=== PATIENT | male | born 1960 | race Caucasian/White ===

== ENCOUNTER 2018-09-14 06:34 | Inpatient (IN) | payer MEDICARE, MEDICAID ==
[~2018-09-14] VITALS: Ht 177.8 cm; Wt 90.7 kg
[~2018-09-14 06:34] MED LIST: FLUO40CA8 PO; IBUP-2030 PO; LAM2 PO; MULT-1146 PO
[2018-09-14] MEDS ORDERED: CEFOXITIN SODIUM 2 G in DEXT 5% WATER 100 ML IV STA (06:56)
[2018-09-14] MEDS ORDERED: NORMAL SALINE 0.9% 10 ML SYR ONE (08:01)
[2018-09-14] MEDS ORDERED: BUPIVACAINE HCL/PF 0.5% (5MG/ML) 10ML ONE (08:01)
[2018-09-14] MEDS ORDERED: LIDOCAINE HCL 1% 20ML VIAL (Pyxis) INJ ONE ×2 (08:01→09:32)
[2018-09-14] MEDS ORDERED: BACITRACIN 50,000 UNITS/VIAL ONE (08:02)
[2018-09-14] MEDS: LACTATED RINGERS 1,000 ML IV SCH ×2 (09:30→14:19)
[2018-09-14] MEDS ORDERED: ROCURONIUM BROMIDE 10MG/ML VIAL 5ML IV ONE ×2 (09:32→10:11)
[2018-09-14] MEDS ORDERED: FENTANYL CITRATE/PF 50MCG/ML 2ML VIAL ONE ×2 (09:32→10:41)
[2018-09-14] MEDS ORDERED: PROPOFOL 200MG/20ML VIAL IV ONE (09:32)
[2018-09-14] MEDS ORDERED: MIDAZOLAM HCL 2 MG/2 ML VIAL ONE (09:32)
[2018-09-14] MEDS ORDERED: SKIN ADHESIVE 0.7 GM EA TOP ONE (10:53)
[2018-09-14] MEDS ORDERED: ONDANSETRON HCL 4MG/2ML INJ IV PRN ×2 (11:30→12:00)
[2018-09-14] MEDS ORDERED: FENTANYL CITRATE/PF 50MCG/ML 2ML VIAL IV PRN (11:30)
[2018-09-14] MEDS: HYDROMORPHONE HCL/PF 2MG/ML CPJ IV PRN ×2 (11:44→14:17)
[2018-09-14] MEDS ORDERED: SODIUM CHLORIDE 0.45% 1,000 ML IV SCH (12:00)
[2018-09-14] MEDS ORDERED: HYDROMORPHONE HCL/PF 2MG/ML CPJ IV PRN (12:00)
[2018-09-14] MEDS: KETOROLAC 30MG/ML VIAL IV SCH ×2 (14:03→21:10)
[2018-09-14 15:50] VITALS: BP 141/81
[2018-09-14 16:00] VITALS: BP 141/81
[2018-09-14] MEDS: FLUOXETINE HCL 20MG CAPSULE PO SCH (18:40)
[2018-09-14 20:00] VITALS: BP 152/92
[2018-09-15] VITALS: BP 140/78
[2018-09-15] MEDS: KETOROLAC 30MG/ML VIAL IV SCH ×2 (04:22→09:30)
[2018-09-15 08:00] VITALS: BP 140/80
[2018-09-15] MEDS ORDERED: LAMOTRIGINE 100MG TABLET PO SCH (09:00)
[2018-09-15] MEDS: FLUOXETINE HCL 20MG CAPSULE PO SCH (09:29)
[2018-09-15 10:15] VITALS: BP 140/80
== END 2018-09-15 10:30 | disposition home or self-care (01) | DRG 419 ==
LOC: OR 06:34 → 6EST 06:35
PROVIDERS: ADMIT Specialist; ATTEND Specialist
PROC: 0FT44ZZ Resection of Gallbladder, Percutaneous Endoscopic Approach (ICD-10-PCS; principal; 2018-09-14)
DX: K80.10 Calculus of gallbladder with chronic cholecystitis without obstruction (principal); G56.00 Carpal tunnel syndrome, unspecified upper limb
CPT/HCPCS: 88304; J0694; J1170; J1885; J2250; J2405; J2704; J3010; J3490; J7060